=== PATIENT | female | born 1965 | race Caucasian/White ===

== ENCOUNTER 2018-12-07 21:26 | Inpatient (IN) | payer OTHER, SELFPAY ==
[2018-12-07] MEDS ORDERED: Enoxaparin Sodium 100 MG/ML SYRINGE ONE (22:14)
[2018-12-07 23:09] LABS: CKMB 1.8 ng/mL (0-6.6)
[2018-12-08 01:36] LABS: Critical Call Chem Troponin I RESULT DECREASING; Troponin I 6.249 ng/mL (< 0.028)
[2018-12-08 04:11] LABS: Critical Call Chem Troponin I RESULT DECREASING; Troponin I 5.551 ng/mL (< 0.028)
[2018-12-08] MEDS ORDERED: Sodium Chloride 0.65% Nasal 44 ML BOT EA NARE PRN (07:51)
[2018-12-08] MEDS ORDERED: Artificial Tears 18 DROP/0.9 ML EA EYE PRN (07:51)
[2018-12-08] MEDS ORDERED: Diabetic Tussin 200 MG/10 ML UDCUP PO PRN (07:51)
[2018-12-08] MEDS ORDERED: Loratadine 10 MG TAB PO PRN (07:51)
[2018-12-08] MEDS ORDERED: Ondansetron ODT 4 MG TAB PO PRN (07:51)
[2018-12-08] MEDS ORDERED: Zolpidem Tartrate 5 MG TAB PO PRN (07:51)
[2018-12-08] MEDS ORDERED: Cepastat Lozenges 1 LOZ PO PRN (07:51)
[2018-12-08] MEDS ORDERED: Acetaminophen 325 MG TAB PO PRN (07:51)
[2018-12-08] MEDS ORDERED: HYDROcodone/Acetaminophen 5/325 mg Tablet PO PRN (07:51)
[2018-12-08] MEDS ORDERED: Bisacodyl 10 MG SUPP PR PRN ×2 (07:51)
[2018-12-08] MEDS ORDERED: Nitroglycerin 0.4 MG TAB (25 Tab Bottle) SL PRN (07:51)
[2018-12-08] MEDS ORDERED: Eucerin (Mineral Oil/Petrolatum,White) 30 gm Jar TOP PRN (07:51)
[2018-12-08] MEDS ORDERED: Senokot S 8.6-50 MG TAB PO PRN ×2 (07:51)
[2018-12-08] MEDS ORDERED: Loperamide HCl 2 MG CAP PO PRN (07:51)
[2018-12-08] MEDS ORDERED: Calcium Carbonate 500 MG ChewTAB PO PRN (07:51)
[2018-12-08] MEDS ORDERED: Ondansetron PF 4 MG/2 ML Vial IVP PRN (07:51)
[2018-12-08 08:19] LABS: #Eosinphils 0.1 thou/uL (0.0-0.7); #Lymphocytes 1.1 thou/uL (1.20-3.40); #Monocytes 0.4 thou/uL (0.11-0.59); #Neutrophils 4.3 thou/uL (1.40-6.50); %Basophils 0.6 % (0.0-1.0); %Eosinophils 2.3 % (0.0-10.0); %Lymphocytes 18.3 % (21.0-51.0); %Monocytes 6.5 % (0.0-10.0); %Neutrophils 72.4 % (42.0-75.0); Hemoglobin 11.8 g/dL (12.0-16.0); Mean Corpuscular HGB CONC 32.5 g/dL (32.0-36.0); Mean Corpuscular Hemoglobin 25.9 pg (27.0-31.0); Mean Corpuscular Volume 79.8 fL (78.0-98.0); Mean Platelet Volume 8.5 fL (7.4-10.4); Platelet Count 243 thou/uL (130-400); RBC Distribution Width 15.6 % (11.5-14.5); Red Blood Cell (RBC) Count 4.57 mill/uL (4.20-5.40); White Blood Cell (WBC) Count 5.9 thou/uL (4.8-10.8)
[2018-12-08 08:29] LABS: ALT (SGPT) 16 U/L (8-55); AST (SGOT) 16 U/L (5-34); Albumin 4.1 g/dL (3.5-5.0); Alkaline Phosphatase 63 U/L (40-150); Anion Gap 12 mmol/L (10-20); BUN (Urea Nitrogen) 22 mg/dL (9.8-20.1); Bilirubin, Total 0.5 mg/dL (0.2-1.2); Calc. Creatinine Clearance 0 mL/min (70-130); Calcium 9.4 mg/dL (7.8-10.44); Carbon Dioxide 25 mmol/L (22-29); Chloride 110 mmol/L (98-107); Cholesterol 158 mg/dl (< 200 Desired); Estimated GFR-MDRD 38; Glucose 95 mg/dL (70-105); HDL Cholesterol 40 mg/dL (>60 Neg Risk); LDL Cholesterol, Calculated 88 mg/dL; Protein, Total 7.1 g/dL (6.0-8.3); Sodium 143 mmol/L (136-145); Triglycerides 148 mg/dL (Less than 150)
[2018-12-08] MEDS ORDERED: Famotidine 20 MG TAB ONE (08:46)
[2018-12-08] MEDS ORDERED: Nitroglycerin 2% Ointment 1 INCH/1 GM Packet ONE (08:46)
[2018-12-08] MEDS ORDERED: Metoprolol Tartrate 25 MG TAB ONE (08:46)
[2018-12-08] MEDS ORDERED: Aspirin 325 MG TAB ONE (08:46)
[2018-12-08] MEDS: Aspirin 325 MG TAB PO SCH (08:52)
[2018-12-08] MEDS: Nitroglycerin 2% Ointment 1 INCH/1 GM Packet TOP SCH ×2 (08:52→18:42)
[2018-12-08] MEDS: Famotidine 20 MG TAB PO SCH ×2 (08:52→20:52)
[2018-12-08] MEDS ORDERED: Metoprolol Tartrate 25 MG TAB PO SCH (09:00)
[2018-12-08] MEDS ORDERED: Lisinopril 10 MG TAB PO SCH (12:15)
--- NOTE | 2018-12-08 12:38 | HP ---
PRIMARY CARE PHYSICIAN: [facility]. REASON FOR ADMISSION: Transferred from [facility] Emergency Room for [id number]. HISTORY OF PRESENT ILLNESS: A 53-year-old female, who was recently admitted at [facility] for CVA, where she had complete workup for CVA including echocardiography and per the patient's CT as well as MRI brain and subsequently, the patient was discharged to home with outpatient therapy on statin and blood pressure medication. At home, the patient was monitoring her blood pressure and her blood pressure was very high and that is why she went to [facility] Emergency Room. The patient was not having any chest pain. She was not feeling any heaviness or shortness of breath, but her blood pressure was very high. The patient reports that after stroke, she is recovering from weakness. Her weakness on the right side significantly improved, but she still has residual some slurred speech. The patient went to [place] [facility]. The patient's blood pressure was initially 208. She was given clonidine, 10 mg hydralazine, aspirin, nitroglycerin patch and Ativan. Subsequently, the patient was transferred to our hospital because routine blood test done at [place] [facility] showed significantly elevated troponin. Her EKG was not showing any ST elevation. The patient denies any orthopnea, PND, or leg swelling. REVIEW OF SYSTEMS: CONSTITUTIONAL: Negative for weight loss or gain, ability to conduct usual activities. SKIN: Negative for rash, itching. EYES: Negative for double vision, pain. ENT/MOUTH: Negative for nose bleeding, neck stiffness, pain, tenderness. CARDIOVASCULAR: Negative for palpitations, dyspnea on exertion, orthopnea. RESPIRATORY: Negative for shortness of breath, wheezing, cough, hemoptysis, fever or night sweats. GASTROINTESTINAL: Negative for poor appetite, abdominal pain, heartburn, nausea, vomiting, constipation, or diarrhea. GENITOURINARY: Negative for urgency, frequency, dysuria, nocturia. MUSCULOSKELETAL: Negative for pain, swelling. NEUROLOGIC/PSYCHIATRIC: Negative for anxiety, depression. ALLERGY/IMMUNOLOGIC: Negative for skin rash, bleeding tendency. Please see my HPI for pertinent positives and negative. All other review of systems reviewed and negative except as mentioned in HPI. PAST MEDICAL HISTORY: Recent CVA 5 days ago, it was infarct, but details are not available; hypertension; dyslipidemia. PAST SURGICAL HISTORY: The patient denies any previous surgical history. PAST PSYCHIATRIC HISTORY: Reviewed and negative. FAMILY HISTORY: No family history of coronary artery disease, stroke, or cancer. ALLERGIES: NO KNOWN DRUG ALLERGIES. CURRENT HOME MEDICATIONS: Aspirin 81 mg daily, Lipitor 40 mg p.o. daily, Coreg 12.5 mg twice daily. EMERGENCY ROOM COURSE: The patient was given clonidine 0.1 mg, 10 mg hydralazine, aspirin 243 mg, nitroglycerin 1 inch, and Ativan 1 mg at [facility] Room. SOCIAL HISTORY: The patient is living at home with her family. No history of tobacco, alcohol, or illicit drug abuse. FAMILY HISTORY: No family history of coronary artery disease, stroke, or cancer. PHYSICAL EXAMINATION: VITAL SIGNS: Currently, blood pressure improved to 121/99, pulse 74, respiratory rate 14, temperature 97.9, saturation 93% on room air. Weight 91.9 kg. GENERAL: The patient is currently alert and oriented, no acute distress. Has residual slurred speech. HEENT: Head; normocephalic, atraumatic. Eyes; pupils round and reactive to light. Extraocular muscle intact. ENT; oropharynx within normal limits. Moist mucous membranes. No oral lesion. No pharyngeal erythema. No exudate. NECK: Supple. No JVD. No thyromegaly. No carotid bruit. LUNGS: Clear to auscultation without any rhonchi or rales. CARDIAC: S1, S2 regular. No murmur. No gallop. No rub. ABDOMEN: Soft. Bowel sounds present. Obesity present. No organomegaly. No mass. No suprapubic tenderness. BACK: Unremarkable. No CVA tenderness. EXTREMITIES: Upper extremities; passive movement of all joints are normal. Lower extremity, no edema. Good distal pulsation. SKIN: No skin rash. HEMATOLOGICAL: No lymphadenopathy. NEUROLOGIC: The patient is alert and oriented x3. Cranial nerves 2 through 12 intact except the patient has residual slurred speech. Motor and sensation significantly normal on both side. No grossly new focal neurological finding noted. SIGNIFICANT LABORATORY DATA: EKG showing biatrial enlargement, LVH, ST-T changes. [facility] Emergency room record completely reviewed. Currently, CBC; WBC 5.9, hemoglobin 11.8, platelet 243. BMP; sodium 143, potassium 4.0, chloride 110, carbon dioxide 25, BUN 22, creatinine 1.45, glucose 95, calcium 9.4. LFTs; AST 16, ALT 16, alkaline phosphatase 63, albumin 4.1. Lipid profile; triglycerides 148, cholesterol 158, LDL 88, HDL 40. TSH 1.58. BNP 489.8. Troponin 6.688. ASSESSMENT AND PLAN: 1. Non-ST elevation myocardial infarction. It is unclear this considered to be type 2 versus type 1. The patient does not have any new EKG changes. She does have LVH and nonspecific ST-T changes. She does not have any angina by history. Her troponin is significantly abnormal. She does have recent cerebrovascular accident as well. At this point, we will consult Cardiology for their expert opinion. I will start aspirin 325 mg p.o. daily. 2. Lipitor 40 mg p.o. at bedtime. We will also start metoprolol 25 mg p.o. b.i.d., nitroglycerin patch q.8 hourly. Further decision will defer to Cardiology. 3. Recent cerebrovascular accident. The patient had cerebrovascular accident 5 days ago and she was recently hospitalized to [facility]. We will get all medical record from that hospital including investigation. The patient will continue to get PT/OT while in hospital. The patient will have aspirin-statin therapy as well as beta-jordon therapy. 4. Hypertension with hypertensive urgency on admission to the ER. Currently, blood pressure has significant improvement, but we will continue to monitor patient's blood pressure while in hospital. We will also add lisinopril 10 mg p.o. daily. 5. Obesity with BMI 32. Dietary education given. Weight loss education given. Healthy lifestyle measure discussed with the patient. 6. Chronic kidney disease, stage 3. We will monitor renal function. 7. Elevated BNP, suspecting diastolic dysfunction. We are addressing blood pressure during this admission. We will obtain echo result. 8. Deep venous thrombosis prophylaxis. Lovenox 40 mg subcu daily. 9. Gastrointestinal prophylaxis, Pepcid 20 mg p.o. b.i.d. CODE STATUS: The patient is full code. The patient's is surrogate decision maker. DISPOSITION PLAN: Based on clinical course. Job ID: [id number]
[2018-12-08] MEDS ORDERED: Amlodipine 10 MG TAB PO SCH (18:45)
[2018-12-08 19:07] LABS: Bilirubin Negative (Negative); Blood, Urine Negative (Negative); Clarity CLEAR (Clear); Glucose, Urine (Dipstick) Negative (Negative); Leukocyte Negative (Negative); Nitrite Negative (Negative); Protein, Urine (Dipstick) Negative (Neg-Trace); Specific Gravity, Urine 1.017 (1.002-1.036); Urobilinogen 0.2 mg/dL (0.2-1.0); pH, Urine 5.5 (5.0-9.0)
[2018-12-08 19:09] LABS: Bacteria/HPF None Seen HPF (None Seen); Hyaline Casts/LPF 0-3 HYALINE CAST LPF (0-3 Hyaline); Pathc Cast-AUWi Flag 0.54 (0-2.49); RBC/HPF 0-3 HPF (0-3); WBC/HPF 0-3 HPF (0-3)
--- NOTE | 2018-12-08 19:49 | CON ---
DATE OF CONSULTATION: REASON FOR CONSULTATION: Recent non-ST elevation myocardial infarction, reason stroke, and uncontrolled hypertension. HISTORY OF PRESENT ILLNESS: Ms. Padmaja Agudelo is a 53-year-old woman with long history of hypertension. She was recently admitted to [facility] in [place] after suffering a stroke. The primary symptom was expressive aphasia. The patient was evaluated. There was CT scan of the head. She previously had been on metoprolol 100 mg a day and amlodipine and lisinopril, but apparently was taken off these. Really, she stopped taking these and was placed on carvedilol. The patient stopped all the other medications. The patient states the blood pressure had previously been well controlled on the previous regimen. The patient was found to be severely hypertensive with blood pressures well over 200 systolic at home. Her daughter, I believe she is in the nursing field and recommend she go to the emergency room, where she was found to have increased troponin levels. No chest pain. PAST MEDICAL HISTORY: "Small stroke in the past." REVIEW OF SYSTEMS: CONSTITUTIONAL: No significant weight gain or loss. VISION: No changes. HEARING: No changes. PULMONARY: No cough or wheezing. GASTROINTESTINAL: No nausea, vomiting, or diarrhea. SKIN: No rashes. NEUROLOGIC: No unilateral weakness or numbness. PSYCHIATRIC: No unusual depression or anxiety. HEMATOLOGIC: No unusual bruising. GENITOURINARY: No burning urination. PHYSICAL EXAMINATION: GENERAL: This is a pleasant patient, in no distress. VITAL SIGNS: Blood pressure is elevated 184/88 and pulse 70s. HEENT: Eyes, sclerae nonicteric. Mouth, mucous membranes moist. NECK: Supple. No lymphadenopathy. LUNGS: Clear. No wheezing, rales, or rhonchi. CARDIAC: Normal S1 and normal S2. There is no murmur, rub, or gallop. ABDOMEN: Soft and nontender. EXTREMITIES: Warm and dry. No clubbing, cyanosis, or edema. LABORATORY DATA: EKG left ventricular hypertrophy with repolarization changes. The patient also has intermittent what looks like idioventricular rhythm on her EKG. The most impressive thing is the left ventricular hypertrophy with the repolarization changes. ASSESSMENT: 1. Recent stroke. 2. Longstanding high blood pressure, taken of multiple medications, it is unclear whether she has some confusion about which she should be taking, but she stop almost all of her blood pressure medicine. 3. Increased troponin level associated with severe hypertension. PLAN: 1. Resume blood pressure medicine. 2. Carotid Dopplers in view of the recent stroke. She does know she has had that done. 3. We will repeat an echocardiogram. 4. Depending on the results, may need to undergo cardiac catheterization as the troponin level did go up to a level of 6.68. Job ID: [id number]
[2018-12-08] MEDS: Atorvastatin Calcium 40 MG TAB PO SCH (20:52)
[2018-12-08] MEDS ORDERED: Metoprolol Tartrate 50 MG TAB PO SCH (21:00)
[2018-12-09] MEDS: Nitroglycerin 2% Ointment 1 INCH/1 GM Packet TOP SCH ×4 (01:56→23:52)
[2018-12-09] MEDS: hydrALAZINE 20 MG/ML VIAL SLOW IVP PRN ×2 (04:34→21:38)
--- NOTE | 2018-12-09 07:52 | ULT ---
US Carotid Doppler STANDARD History: [CVA] Comparison: None available Findings: Real-time grayscale, color, and spectral analysis of the extracranial carotid and vertebral arteries was performed. No abnormal elevated peak systolic velocities within the internal carotid arteries. Antegrade flow monica th vertebral arteries. Impression: No evidence of hemodynamically significant stenosis.
[2018-12-09] MEDS ORDERED: Enoxaparin Sodium 40 MG/0.4 ML SYRINGE SC SCH (09:00)
[2018-12-09] MEDS ORDERED: Lisinopril 10 MG TAB PO SCH (09:00)
[2018-12-09] MEDS: Famotidine 20 MG TAB PO SCH ×2 (09:31→21:38)
[2018-12-09] MEDS: Amlodipine 10 MG TAB PO SCH (09:31)
[2018-12-09] MEDS: Aspirin 325 MG TAB PO SCH (09:31)
[2018-12-09] MEDS: Lisinopril 20 MG TAB PO SCH (09:37)
--- NOTE | 2018-12-09 13:23 | PDOC.PN ---
- Subjective Encounter Start Date: 12/09/18 Encounter Start Time: 09:30 -: old records requested/rev Patient seen and examined. No new complaints. No overnight events - Objective Resuscitation Status - Order Detail: 12/08/18 07:47 Resuscitation Status Routine Resuscitation Status: FULL: Full Resuscitation MAR Reviewed: Yes Vital Signs & Weight: Vital Signs (12 hours) Temp Pulse Pulse Resp BP BP BP 12/09/18 11:48 97.9 F 70 16 12/09/18 11:25 62 163/78 H 166/78 H 12/09/18 09:37 206/86 H 12/09/18 09:31 72 206/86 H 12/09/18 05:01 65 12/09/18 04:34 62 198/93 H 12/09/18 04:00 98.4 F 75 18 BP Pulse Ox 12/09/18 11:48 153/83 H 97 12/09/18 11:25 12/09/18 09:37 12/09/18 09:31 12/09/18 05:01 148/77 H 12/09/18 04:34 12/09/18 04:00 192/86 H 98 Weight Weight 200 lb 3.2 oz I&O: 12/08/18 12/09/18 12/10/18 06:59 06:59 06:59 Intake Total 620 Balance 620 Result Diagrams: 12/08/18 08:05 12/08/18 08:05 Radiology Reviewed by me: Yes EKG Reviewed by me: Yes Phys Exam - Physical Examination Constitutional: NAD HEENT: PERRLA, moist MMs, sclera anicteric Neck: no JVD, supple Respiratory: no wheezing, no rales, no rhonchi Cardiovascular: RRR, no significant murmur, no rub Gastrointestinal: soft, non-tender, no distention Musculoskeletal: no edema, pulses present Neurological: non-focal, normal sensation Lymphatic: no nodes Psychiatric: normal affect, A&O x 3 Skin: no rash, normal turgor Dx/Plan (1) Type [address] elevation Code(s): I21.A1 - MYOCARDIAL INFARCTION TYPE 2 Status: Acute (2) CVA (cerebral vascular accident) Code(s): I63.9 - CEREBRAL INFARCTION, UNSPECIFIED Status: Acute (3) Diastolic dysfunction Code(s): I51.89 - OTHER ILL-DEFINED HEART DISEASES Status: Acute (4) CKD (chronic kidney disease) stage 3, GFR 30-59 ml/min Code(s): N18.3 - CHRONIC KIDNEY DISEASE, STAGE 3 (MODERATE) Status: Chronic (5) Dyslipidemia Code(s): E78.5 - HYPERLIPIDEMIA, UNSPECIFIED Status: Chronic (6) Hypertension Code(s): I10 - ESSENTIAL (PRIMARY) HYPERTENSION Status: Chronic (7) Obesity (BMI 30.0-34.9) Code(s): E66.9 - OBESITY, UNSPECIFIED Status: Chronic - Plan cont current plan of care, PT/OT * medication reviewed as below * symptomatic treatment * cardiology following * pt is stable and improving * cardiac cath will defer to cardiology. Review of Systems - Review of Systems ENT: negative: Ear Pain, Ear Discharge, Nose Pain, Nose Discharge, Nose Congestion, Mouth Pain, Mouth Swelling, Throat Pain, Throat Swelling, Other Respiratory: negative: Cough, Dry, Shortness of Breath, Hemoptysis, SOB with Excertion, Pleuritic Pain, Sputum, Wheezing Cardiovascular: negative: chest pain, palpitations, orthopnea, paroxysmal nocturnal dyspnea, edema, light headedness, other Gastrointestinal: negative: Nausea, Vomiting, Abdominal Pain, Diarrhea, Constipation, Melena, Hematochezia, Other Genitourinary: negative: Dysuria, Frequency, Incontinence, Hematuria, Retention , Other Musculoskeletal: negative: Neck Pain, Shoulder Pain, Arm Pain, Back Pain, Hand Pain, Leg Pain, Foot Pain, Other Skin: negative: Rash, Lesions, Parish, Bruising, Other - Medications/Allergies Allergies/Adverse Reactions: Allergies Allergy/AdvReac Type Severity Reaction Status Date / Time No Known Drug Allergies Allergy Verified 12/08/18 08:03 Medications: Current Medications Acetaminophen (Tylenol) 650 mg PO Q4H PRN PRN Reason: Headache/Fever/Mild Pain (1-3) Hydrocodone Bitart/Acetaminophen ([place] 5/325) 1 tab PO Q4H PRN PRN Reason: Moderate Pain (4-6) Amlodipine Besylate (Norvasc) 10 mg PO DAILY [facility] Last Admin: 12/09/18 09:31 Dose: 10 mg Artificial Tears (Tears Naturale) 2 drop EA EYE PRN PRN PRN Reason: Dry Eyes Aspirin (Aspirin) 325 mg PO DAILY [facility] Last Admin: 12/09/18 09:31 Dose: 325 mg Atorvastatin Calcium (Lipitor) 40 mg PO HS [facility] Last Admin: 12/08/18 20:52 Dose: 40 mg Bisacodyl (Dulcolax) 10 mg MD DAILYPRN PRN PRN Reason: Constipation Calcium Carbonate (Tums) 1,000 mg PO Q4H PRN PRN Reason: Heartburn or Indigestion Enoxaparin Sodium (Lovenox) 40 mg SC 0900 [facility] Last Admin: 12/09/18 09:31 Dose: 40 mg Famotidine (Pepcid) 20 mg PO BID [facility] Last Admin: 12/09/18 09:31 Dose: 20 mg Guaifenesin (Robitussin Sf) 200 mg PO Q4H PRN PRN Reason: Cough Hydralazine HCl (Apresoline) 10 mg SLOW IVP Q4H PRN PRN Reason: SBP > 180 and HR < 70 Last Admin: 12/09/18 04:34 Dose: 10 mg Lisinopril (Zestril) 20 mg PO DAILY [facility] Last Admin: 12/09/18 09:37 Dose: 20 mg Loperamide HCl (Imodium) 2 mg PO PRN PRN PRN Reason: Diarrhea/Loose Stools Loratadine (Claritin) 10 mg PO DAILYPRN PRN PRN Reason: Sinus Symptoms Metoprolol Succinate (Toprol Xl) 100 mg PO DAILY [facility] Last Admin: 12/09/18 09:37 Dose: 100 mg Mineral Oil/White Petrolatum (Eucerin Cream) 0 gm TOP BIDPRN PRN PRN Reason: Dry Skin Nitroglycerin (Nitrostat) 0.4 mg SL Q5MIN PRN PRN Reason: Chest Pain Nitroglycerin (Nitro-Bid 2% Ointment) 0.5 inch TOP 0100,0900,1700 [facility] Last Admin: 12/09/18 09:37 Dose: 0.5 inch Ondansetron HCl (Zofran Odt) 4 mg PO Q6H PRN PRN Reason: Nausea/Vomiting Ondansetron HCl (Zofran) 4 mg IVP Q6H PRN PRN Reason: Nausea/Vomiting Senna/Docusate Sodium (Senokot S) 2 tab PO BID PRN PRN Reason: Constipation Sodium Chloride (Bureau Nasal [place] 0.65%) 0 ml EA NARE QIDPRN PRN PRN Reason: Nasal Congestion Throat Lozenges (Cepastat Lozenges) 1 simba PO Q2H PRN PRN Reason: Sore Throat Zolpidem Tartrate (Ambien) 5 mg PO HSPRN PRN PRN Reason: Insomnia
[2018-12-09] MEDS ORDERED: Communication Order-Pharmacy FS SCH (18:15)
--- NOTE | 2018-12-09 18:54 | PRG ---
DATE OF SERVICE: SUBJECTIVE: Ms. Agudelo is doing better today. She still has some expressive aphasia. No chest pain or pressure. OBJECTIVE: VITAL SIGNS: She is back on her blood pressure medicines and her blood pressure is 155/81. Pulse 65, regular. LUNGS: Clear. CARDIAC: Normal S1. Normal S2. ABDOMEN: Soft and nontender. Carotid Doppler showed no obstructive carotid disease. DIAGNOSTIC DATA: Echocardiogram shows severe left ventricular hypertrophy with hyperdynamic left ventricle. ASSESSMENT: [id number] myocardial infarction ? related to hypertensive episode versus underlying coronary artery disease. The patient had a peak troponin of 6.68, which is worrisome for underlying coronary artery disease in addition to hypertensive heart disease. I discussed the options. I discussed the best option in terms of making a definitive diagnosis would be cardiac catheterization. Discussed risks, stroke, heart attack, iodine allergy, loss of blood supply to leg or kidney, stent thrombosis, stent restenosis. She understands and wished to proceed. We will plan for tomorrow. Job ID: [id number]
[2018-12-09] MEDS: Atorvastatin Calcium 40 MG TAB PO SCH (21:38)
[2018-12-10 04:28] VITALS: TEMP 97.7
[2018-12-10] MEDS ORDERED: Diazepam 5 MG TAB PO SCH (06:00)
[2018-12-10] MEDS ORDERED: Sodium Chloride 0.9% 1,000 ML IV SCH ×2 (06:00→09:29)
[2018-12-10] MEDS ORDERED: Midazolam HCl 2 mg/2 ml Vial ONE (07:12)
[2018-12-10] MEDS ORDERED: Fentanyl 100 MCG/2 ML VIAL ONE (07:13)
[2018-12-10] MEDS ORDERED: Metoprolol Tartrate 5 MG/5 ML VIAL ONE ×2 (07:16→07:57)
[2018-12-10] MEDS: Lisinopril 20 MG TAB PO SCH (08:31)
[2018-12-10] MEDS: Aspirin 325 MG TAB PO SCH (08:32)
[2018-12-10] MEDS: Famotidine 20 MG TAB PO SCH (08:32)
[2018-12-10] MEDS: Amlodipine 10 MG TAB PO SCH (08:32)
[2018-12-10] MEDS: Nitroglycerin 2% Ointment 1 INCH/1 GM Packet TOP SCH (08:33)
[2018-12-10] MEDS ORDERED: Clopidogrel Bisulfate 75 MG TAB PO SCH (09:00)
[2018-12-10] MEDS ORDERED: Nitroglycerin 0.4 MG TAB (25 Tab Bottle) SL PRN (09:29)
[2018-12-10] MEDS ORDERED: Sodium Chloride 0.9% 200 ML IV PRN (09:29)
[2018-12-10] MEDS ORDERED: Acetaminophen/Codeine 30-300mg Tablet PO PRN ×2 (09:29)
[2018-12-10] MEDS ORDERED: Iopamidol 370 76% 100 ML VIAL ONE (10:27)
--- NOTE | 2018-12-10 10:54 | DIS ---
DATE OF ADMISSION: 12/08/2018 DATE OF DISCHARGE: 12/10/2018 PRIMARY CARE PHYSICIAN: [facility] Call admission. DISCHARGE DISPOSITION: Home. PRIMARY DISCHARGE DIAGNOSES: Non-ST elevation myocardial infarction, 3-vessel coronary artery disease, hypertensive urgency. SECONDARY DISCHARGE DIAGNOSES: History of recent cerebrovascular accident, hypertension, dyslipidemia, obesity with BMI 33, chronic kidney disease stage 3. PRIMARY PROCEDURE/OPERATION: Cardiac catheterization was performed by Dr. Bojorquez and found with 3-vessel CAD with diffuse atherosclerosis. RADIOLOGICAL INVESTIGATION: Echocardiography showed hypertensive heart disease with LVH and diastolic dysfunction. Carotid Doppler negative for any stenosis. SIGNIFICANT LABORATORY DATA: WBC 5.9, hemoglobin 11.8, platelet 243. Sodium 143, creatinine 1.45, calcium 9.4, LDL 88. Troponin 5.51. BNP 489. TSH 1.58. Urinalysis normal. DISCHARGE MEDICATION: 1. Lipitor 40 mg p.o. daily. 2. Flonase nasal spray daily. 3. Amlodipine 10 mg daily. 4. Aspirin 81 mg daily. 5. Plavix 75 mg daily. 6. Lisinopril 20 mg daily. 7. Toprol-XL 100 mg p.o. daily. CONTRAINDICATION: None. CODE STATUS: Full code. INPATIENT [employer] PRODUCTION SUPERVISOR: Dr. Bojorquez was following while in the hospital. TESTS RESULT PENDING ON DISCHARGE: None. ALLERGIES: NO KNOWN DRUG ALLERGIES. DISCHARGE PLAN: Posthospital, the patient will follow up with primary care physician in one week. The patient will make appointment with Cardiology as instructed. HOSPITAL COURSE: A 53-year-old female, who was recently admitted to [facility] for acute CVA. She recovered from stroke and she was at home and getting her outpatient rehabilitation. At home, her blood pressure was not well controlled and her blood pressure was very high and that is why she went to local emergency room in [place] at [facility] where the patient was found with hypertensive urgency. Her troponin was significantly elevated. Her EKG was nonspecific. She was transferred to our hospital for higher level of care. We admitted to telemetry floor. We did echocardiography, which showed LVH and diastolic dysfunction. She also had elevated BNP. The patient underwent cardiac catheterization and found with diffuse atherosclerosis and 3-vessel CAD and Cardiology recommended medical therapy. We added Plavix therapy on her regular regimen. We adjusted blood pressure medication while in the hospital and added amlodipine, lisinopril, and Toprol-XL. PHYSICAL EXAMINATION: GENERAL: The patient is seen and examined at bedside today. VITAL SIGNS: During this admission, her temperature 97.7, blood pressure 167/74, pulse 65, saturation 96%. LUNGS: Clear to auscultation. CARDIAC: S1 and S2. Regular without any murmur. ABDOMEN: Soft, benign without any tenderness. EXTREMITIES: No edema. NEUROLOGIC: The patient is recovering from recent stroke. Overall, the patient is medically stable for discharge today. All new medication prescription sent to her pharmacy. Job ID: [id number]
--- NOTE | 2018-12-10 14:55 | PRG ---
DATE OF SERVICE: 12/10/2018 HISTORY: Ms. Agudelo underwent cardiac catheterization today. She was found to have diffuse atherosclerosis. There was diffuse mild plaque in the proximal LAD. There was a diffuse disease in the mid LAD, most severe appears to be about 50%, which is 70% obtuse marginal one lesion in an ostial location, best treated medically. The right coronary is nondominant with some 90% lesions more distally. Ejection fraction 70%. The patient is to be treated medically. Her main problem is hypertension, also has hypercholesterolemia. CURRENT MEDICATIONS: Includes, 1. Metoprolol 100 mg a day. 2. Amlodipine 10 mg a day. Dose should be increased to 10 mg twice a day, if blood pressure is not adequately controlled. 3. Atorvastatin 40 mg a day. I would consider changing that to Crestor 40 mg a day, as the LDL target is 70 and her LDL is still 88. 4. Plavix 75 mg a day. 5. Lisinopril 20 mg a day. 6. Nitroglycerin as needed. 7. Aspirin. Dose could be reduced to 81 mg a day. RECOMMENDATION: The patient to come back and see us in the office in about a month. If her pressure is high, I would recommend changes as outlined above. Also, I have considered changing her Crestor or adding Zetia to get her LDL cholesterol lower. She understands that it is important to take the medicines on a regular basis. Job ID: [id number]
[2018-12-10] MEDS ORDERED: Amlodipine 10 MG TAB PO SCH (15:15)
[2018-12-10 16:05] VITALS: BP 159/70
[2018-12-10] MEDS ORDERED: Rosuvastatin 20 MG TAB PO SCH (21:00)
[2018-12-11] MEDS ORDERED: Amlodipine 10 MG TAB PO SCH (09:00)
--- NOTE | 2018-12-11 15:38 | EKG ---
Test Reason : Blood Pressure : / mmHG Vent. Rate : 076 BPM Atrial Rate : 076 BPM P-R Int : 206 ms QRS Dur : 092 ms QT Int : 444 ms P-R-T Axes : 046 -13 125 degrees QTc Int : 499 ms Normal sinus rhythm Biatrial enlargement Left ventricular hypertrophy Prolonged QT Abnormal ECG Confirmed by ALLIE SMITH ([id number]), index editor JUAN LUIS FULLER ([id number]) on 12/11/2018 3:37:51 PM Referred By: Confirmed By:ALLIE SMITH
--- NOTE | 2018-12-13 05:03 | PQF ---
[employer] Crystal Reports Winform Viewer CAYLA BENTLEY MILA KWONG MD [id number] CLINICAL DOCUMENTATION CLARIFICATION FORM: POST DISCHARGE Addendum to original discharge summary date: ____ Late entry note date: __ DATE: 12/13/18 ATTN: Mila Chairez Please exercise your independent, professional judgment in responding to the clarification form. Clinical indicators are provided on the bottom of this form for your review Based on your clinical judgment kindly clarify the type and acuity of the patients CHF. Please check appropriate box(s): HEART FAILURE: A. TYPE: [ ] Systolic / HFrEF [ ] Diastolic / HFpEF [ ] Combined Systolic / Diastolic B. ACUITY [ ] Acute [ ] Acute on Chronic [ ] Chronic [ x ] Other diagnosis please specify _diastolic dysfunction without heart failure [ ] Unable to determine In addition, please specify: Present on Admission (POA): [x ] Yes [ ] No [ ] Unable to determine For continuity of documentation, please document condition throughout progress notes and discharge summary. Thank You. CLINICAL INDICATORS H and P pg.1 12/08 Dr. Kwong- Patient blood pressure was initially 208. she was given clonidine, 10mg hydralazine, aspirin, nitroglycerin patch and ativan. H and P pg.3 12/08 Dr. Kwong- Non-ST elevation myocardial infaction H and P pg.3 12/08 Dr. Kwong- She does have LVH and non specific ST-T changes. Hospitalist PN pg.3 12/09 Dr. Kwong - Diastolic dysfunction DS pg.1 12/10 Dr. Kwong- Echocardiography showed hypertensive hearth disease with LVH and diastolic dysfunction. DS pg.1 12/10 Dr. Kwong- She also has elevated BNP Laboratory: 12/08/18 : BNP 489.8H LETICIA pg.1 4/11- Ejection Fraction 70-75% ECG result 12/[address] Wiggins- Biatrial enlargement, left ventricular hypertrophy Cardiac Cath Result 12/[address] Bojorquez - 3 Vessel CAD with diffuse atherosclerosis, LVEF 70% hyperdynamic , short left main coronary. RISKS: Hypertension- DS pg.1 12/10 Dr. Kwong Dyslipidemia- DS pg.1 12/10 Dr. Kwong Obesity- DS pg.1 12/10 Dr. Kwong Coronary artery disease- DS pg.1 12/10 Dr. Kwong Hypertensive Urgency- DS pg.1 12/10 Dr. Kwong Non-ST elevation myocardial infaction- DS pg.1 12/10 Dr. Kwong CKD 3- DS pg.1 12/10 Dr. Kwong TREATMENTS: Cardio Consult -Dr. Bojorquez Left Heart Catheterization - 12/[address] Bojorquez Electrocardiogram- 12/[address] Wiggins Carotid Doppler Study - 12/09 Lisinopril 10mg PO - MAR Nitroglycerin 0.4mg SL -OCT (This form is maintained as a part of the permanent medical record) 2014 [employer] All Rights Reserved [email or web address] [not provided] MTDD
== END 2018-12-10 16:08 | disposition home or self-care (01) | DRG 282 ==
LOC: ERS 21:26 → 2SE 22:33 → ERHOLD 23:45 → OBSVTOIN 12-08 07:47 → 2SE 12-08 09:52
PROVIDERS: ADMIT Family Medicine; ATTEND Family Medicine
PROC: 4A023N7 Measurement of Cardiac Sampling and Pressure, Left Heart, Percutaneous Approach (ICD-10-PCS; principal; 2018-12-08)
PROC: B2151ZZ Fluoroscopy of Left Heart using Low Osmolar Contrast (ICD-10-PCS; 2018-12-08)
PROC: B2111ZZ Fluoroscopy of Multiple Coronary Arteries using Low Osmolar Contrast (ICD-10-PCS; 2018-12-08)
DX: I21.4 Non-ST elevation (NSTEMI) myocardial infarction (principal); E78.00 Pure hypercholesterolemia, unspecified; I16.0 Hypertensive urgency; I13.10 Hypertensive heart and chronic kidney disease without heart failure, with stage 1 through stage 4 chronic kidney disease, or unspecified chronic kidney disease; I51.89 Other ill-defined heart diseases; N18.3 Chronic kidney disease, stage 3 (moderate); E66.9 Obesity, unspecified; I25.10 Atherosclerotic heart disease of native coronary artery without angina pectoris; Z68.32 Body mass index [BMI] 32.0-32.9, adult; I69.320 Aphasia following cerebral infarction; Z79.82 Long term (current) use of aspirin; Z79.899 Other long term (current) drug therapy; I69.393 Ataxia following cerebral infarction
CPT/HCPCS: 36415; 76942; 80053; 80061; 81001; 82553; 83880; 84443; 84484; 85025; 93005; 93306; 93458; 93798; 93880; 94760; 96372; 99152; 99153; C1769; J0360; J1644; J1650; J2250; J3010; Q9967

== ENCOUNTER 2025-06-01 10:06 | Outpatient (CLI) | payer MEDICARE | END 2025-06-01 10:07 | disposition home or self-care (01) | LOC: ULT 10:06 | PROVIDERS: ATTEND Internal Medicine Nephrology | DX: I12.9 Hypertensive chronic kidney disease with stage 1 through stage 4 chronic kidney disease, or unspecified chronic kidney disease (principal); N18.4 Chronic kidney disease, stage 4 (severe) | CPT/HCPCS: 76770; 93975 ==